=== PATIENT | male | born 1965 | race African-American/Black ===

== ENCOUNTER 2017-05-20 07:40 | Emergency (ER) | payer OTHER, MEDICAID ==
[~2017-05-20] VITALS: Ht 175.3 cm; Wt 100.0 kg
[~2017-05-20 07:40] MED LIST: ATEN1POW2; IBUP100T53; OMEP20TA80; TRAZ50TA47 PO; [UNRECOGNIZED DRUG - CODE]
[2017-05-20] MEDS ORDERED: DIPHENHYDRAMINE 50MG CAPSULE PO ONE (09:30)
[2017-05-20] MEDS ORDERED: HYDROCODONE/ACETAMINOPHEN 5/325MG TABLET PO ONE (09:30)
[2017-05-20] MEDS ORDERED: PREDNISONE 20MG TABLET PO ONE (09:30)
[2017-05-20 11:00] VITALS: BP 158/87
== END 2017-05-20 11:03 | disposition home or self-care (01) ==
LOC: ER 07:40
DX: T78.40XA Allergy, unspecified, initial encounter (principal); R21 Rash and other nonspecific skin eruption; I10 Essential (primary) hypertension; F12.10 Cannabis abuse, uncomplicated; Z90.49 Acquired absence of other specified parts of digestive tract; Y92.89 Other specified places as the place of occurrence of the external cause; Z91.048 Other nonmedicinal substance allergy status
CPT/HCPCS: 99284; J7512; Q0163

== ENCOUNTER 2017-11-30 09:11 | Emergency (ER) | payer OTHER, MEDICAID ==
[~2017-11-30] VITALS: Ht 175.3 cm; Wt 100.0 kg
[~2017-11-30 09:11] MED LIST changes: +OMEP20TA2; -OMEP20TA80
[2017-11-30] MEDS ORDERED: KETOROLAC 30MG/ML VIAL IM ONE (10:00)
[2017-11-30] MEDS ORDERED: CYCLOBENZAPRINE 10MG TABLET PO ONE (10:00)
[2017-11-30 12:23] VITALS: BP 171/111
== END 2017-11-30 12:27 | disposition home or self-care (01) ==
LOC: ER 09:43
DX: R20.0 Anesthesia of skin (principal); M25.512 Pain in left shoulder; M25.511 Pain in right shoulder; I10 Essential (primary) hypertension; F12.90 Cannabis use, unspecified, uncomplicated; Z87.891 Personal history of nicotine dependence
CPT/HCPCS: 96372; 99283; J1885

== ENCOUNTER 2018-04-28 13:49 | Emergency (ER) | payer OTHER, MEDICAID ==
[~2018-04-28] VITALS: Ht 177.8 cm; Wt 100.0 kg
[2018-04-28] MEDS ORDERED: KETOROLAC 60MG/2ML VIAL IM ONE (19:00)
[2018-04-28 19:04] VITALS: BP 172/98
== END 2018-04-28 19:09 | disposition home or self-care (01) ==
LOC: ER 13:49
DX: M47.897 Other spondylosis, lumbosacral region (principal); R03.0 Elevated blood-pressure reading, without diagnosis of hypertension; I10 Essential (primary) hypertension; F12.90 Cannabis use, unspecified, uncomplicated; Z87.891 Personal history of nicotine dependence
CPT/HCPCS: 72100; 96372; 99284; J1885

== ENCOUNTER 2019-03-13 07:57 | Emergency (ER) | payer OTHER, MEDICAID ==
[~2019-03-13] VITALS: Ht 172.7 cm; Wt 88.0 kg
[2019-03-13] MEDS ORDERED: SODIUM CHLORIDE 0.9% 1,000 ML IV ONE (08:51)
[2019-03-13] MEDS ORDERED: METHYLPREDNISOLONE SOD SUCC 125 MG/2 ML VIAL IV ONE (09:00)
[2019-03-13] MEDS ORDERED: DIPHENHYDRAMINE 50MG/ML VIAL IV ONE (09:00)
[2019-03-13] MEDS ORDERED: FAMOTIDINE 20MG/2ML VIAL IV ONE (09:00)
[2019-03-13 09:09] LABS: BASOPHILS % 0.8 % (0.0-2.0); CHLORIDE 105 mEq/L (98-107); EOSINOPHILS % 7.9 % (0.0-5.0); HEMOGLOBIN. 14.8 g/dL (14.0-18.0); LYMPHOCYTES % 25.4 % (20.0-50.0); MEAN CORPUSCULAR HEMOGLOBIN 28.7 pg (28.0-32.0); MEAN CORPUSCULAR VOLUME 83.5 fL (80.0-94.0); MEAN PLATELET VOLUME 7.6 fl (7.4-10.4); MONOCYTES % 11.4 % (2.0-8.0); NEUTROPHILS % 54.5 % (40.0-76.0); PLATELET 236 x1000/uL (130-400); RED BLOOD CELL COUNT 5.15 mill/uL (4.7-6.1); RED CELL DISTRIBUTION WIDTH 13.1 % (11.6-14.6)
[2019-03-13 09:16] LABS: PARTIAL THROMBOPLASTIN TIME 27.3 sec (23.4-31.0); PROTHROMBIN TIME 10.7 sec (9.6-11.0)
[2019-03-13] MEDS ORDERED: PREDNISONE 20MG TABLET PO ONE (12:15)
[2019-03-13 12:52] VITALS: BP 158/82
== END 2019-03-13 12:58 | disposition left against medical advice (07) ==
LOC: ER 08:05 → CANBEDREQ 14:43
DX: T78.40XA Allergy, unspecified, initial encounter (principal); I10 Essential (primary) hypertension; F12.10 Cannabis abuse, uncomplicated; J44.9 Chronic obstructive pulmonary disease, unspecified; M19.90 Unspecified osteoarthritis, unspecified site; I20.9 Angina pectoris, unspecified; Z79.899 Other long term (current) drug therapy; X58.XXXA Exposure to other specified factors, initial encounter
CPT/HCPCS: 36415; 71045; 80053; 83880; 84484; 85025; 85610; 85730; 93005; 96374; 96375; 99284; J1200; J2930; J3490; J7030; J7512

== ENCOUNTER 2020-11-22 12:53 | Emergency (ER) | payer MEDICARE, MEDICAID ==
[~2020-11-22] VITALS: Ht 177.8 cm; Wt 115.0 kg
[2020-11-22] MEDS ORDERED: DIPHENHYDRAMINE 50MG/ML VIAL IV ONE (13:45)
[2020-11-22] MEDS ORDERED: METHYLPREDNISOLONE SOD SUCC 125 MG/2 ML VIAL IV ONE (13:45)
[2020-11-22] MEDS ORDERED: FAMOTIDINE 20MG/2ML VIAL IV ONE (13:45)
[2020-11-22 13:56] VITALS: BP 102/62
== END 2020-11-22 15:20 | disposition home or self-care (01) ==
LOC: ER 13:01
DX: T78.1XXA Other adverse food reactions, not elsewhere classified, initial encounter (principal); I10 Essential (primary) hypertension; J44.9 Chronic obstructive pulmonary disease, unspecified; J45.909 Unspecified asthma, uncomplicated; M19.90 Unspecified osteoarthritis, unspecified site; F12.10 Cannabis abuse, uncomplicated; Z90.49 Acquired absence of other specified parts of digestive tract; Z91.010 Allergy to peanuts; X58.XXXA Exposure to other specified factors, initial encounter
CPT/HCPCS: 96374; 96375; 99283; J1200; J2930; J3490

== ENCOUNTER 2020-12-17 09:02 | Emergency (ER) | payer MEDICARE, MEDICAID ==
[~2020-12-17] VITALS: Ht 177.8 cm; Wt 118.0 kg
[2020-12-17] MEDS ORDERED: IPRATROPIUM BROMIDE (0.02%) 0.5MG/2.5ML NEB HHN STA (09:29)
[2020-12-17] MEDS ORDERED: ACETAMINOPHEN 325MG TABLET PO STA (09:29)
[2020-12-17] MEDS ORDERED: ALBUTEROL (0.083%) 2.5MG/3ML NEB HHN STA (09:29)
[2020-12-17] MEDS ORDERED: PREDNISONE 20MG TABLET PO STA (09:29)
[2020-12-17] MEDS ORDERED: CEFTRIAXONE 1 G PREMIX 50 ML IV ONE (09:30)
[2020-12-17 09:50] LABS: BASOPHILS % 0.6 % (0.0-2.0); EOSINOPHILS % 1.9 % (0.0-5.0); HEMATOCRIT. 38.6 % (42.0-52.0); HEMOGLOBIN. 13.1 g/dL (14.0-18.0); LYMPHOCYTES % 16.7 % (20.0-50.0); MEAN CORPUSCULAR HEMOGLOBIN 28.1 pg (28.0-32.0); MEAN CORPUSCULAR VOLUME 82.8 fL (80.0-94.0); MEAN PLATELET VOLUME 7.8 fl (7.4-10.4); MONOCYTES % 13.9 % (2.0-8.0); NEUTROPHILS % 66.9 % (40.0-76.0); PLATELET 243 x1000/uL (130-400); RED BLOOD CELL COUNT 4.66 mill/uL (4.7-6.1); RED CELL DISTRIBUTION WIDTH 14.3 % (11.6-14.6)
[2020-12-17 09:57] LABS: CHLORIDE 108 mEq/L (98-107)
[2020-12-17] MEDS ORDERED: CEFTRIAXONE SODIUM 1 G/VIAL IV ONE (11:00)
[2020-12-17] MEDS ORDERED: AZITHROMYCIN 500 MG in DEXT 5% WATER 250 ML IV SCH (12:30)
[2020-12-17] MEDS ORDERED: IOHEXOL-350 100 ML BOTTLE ONE (13:16)
[2020-12-17] MEDS ORDERED: ENOXAPARIN 120MG/0.8ML SYR SUBCUT ONE (13:30)
[2020-12-17 13:39] LABS: PARTIAL THROMBOPLASTIN TIME 33.1 sec (23.4-31.0); PROTHROMBIN TIME 11.2 sec (9.6-11.0)
[2020-12-17 14:22] VITALS: BP 137/71
== END 2020-12-17 15:00 | disposition short-term general hospital (02) ==
LOC: ER 09:14
DX: I26.99 Other pulmonary embolism without acute cor pulmonale (principal); J18.9 Pneumonia, unspecified organism; J44.1 Chronic obstructive pulmonary disease with (acute) exacerbation; Z20.822 Contact with and (suspected) exposure to COVID-19; R79.1 Abnormal coagulation profile; I10 Essential (primary) hypertension; R73.9 Hyperglycemia, unspecified; J98.11 Atelectasis; D64.9 Anemia, unspecified; F17.210 Nicotine dependence, cigarettes, uncomplicated; F12.90 Cannabis use, unspecified, uncomplicated; Z91.010 Allergy to peanuts
CPT/HCPCS: 36415; 71045; 71275; 80048; 80076; 83605; 84145; 84484; 85025; 85379; 85610; 85730; 87040; 93005; 94644; 96365; 96367; 96372; 99285; C9803; J0456; J0696; J1650; J7060; J7512; Q9967; U0003

== ENCOUNTER 2021-07-20 10:53 | Inpatient (IN) | payer MEDICARE, MEDICAID ==
[~2021-07-20] VITALS: Ht 177.8 cm; Wt 65.8 kg
[2021-07-20] VITALS (7 sets, daily range): BP systolic 107–166; BP diastolic 51–100
[2021-07-20] MEDS ORDERED: ONDANSETRON HCL 4MG/2ML INJ IV STA (11:39)
[2021-07-20] MEDS ORDERED: NITROGLYCERIN 0.4MG TABLET SL SL PRN (11:45)
[2021-07-20] MEDS ORDERED: ASPIRIN 81MG TABLET PO ONE (11:45)
[2021-07-20] MEDS ORDERED: MORPHINE SULFATE 2 MG/ML CPJ (NOT FOR IM USE) IV NR (11:55)
[2021-07-20 11:58] LABS: BASOPHILS % 0.6 % (0.0-2.0); EOSINOPHILS % 5.2 % (0.0-5.0); HEMATOCRIT. 40.1 % (42.0-52.0); HEMOGLOBIN. 13.9 g/dL (14.0-18.0); LYMPHOCYTES % 16.6 % (20.0-50.0); MEAN CORPUSCULAR HEMOGLOBIN 26.8 pg (28.0-32.0); MEAN CORPUSCULAR VOLUME 77.7 fL (80.0-94.0); MEAN PLATELET VOLUME 7.8 fl (7.4-10.4); NEUTROPHILS % 70.6 % (40.0-76.0); PLATELET 288 x1000/uL (130-400); RED BLOOD CELL COUNT 5.16 mill/uL (4.7-6.1); RED CELL DISTRIBUTION WIDTH 15.4 % (11.6-14.6)
[2021-07-20] MEDS: MORPHINE SULFATE 4 MG/ML CPJ (NOT FOR IM USE) IV STA ×2 (12:00→12:04)
[2021-07-20 12:07] LABS: CHLORIDE 105 mEq/L (98-107)
[2021-07-20 12:11] LABS: INR 1.1; PARTIAL THROMBOPLASTIN TIME 33.3 sec (23.4-31.0); PROTHROMBIN TIME 12.1 sec (9.6-11.0)
[2021-07-20] MEDS ORDERED: HEPARIN 5000 UNITS/ML VIAL IV ONE (12:30)
[2021-07-20] MEDS ORDERED: LIDOCAINE HCL 1% 30ML VIAL (10MG/ML) ONE (13:21)
[2021-07-20] MEDS ORDERED: IODIXANOL 320MG/ML 200ML BOTTLE ONE (13:22)
[2021-07-20] MEDS ORDERED: HEPARIN 1000 UNITS/ML 10ML ONE (13:23)
[2021-07-20] MEDS ORDERED: IOHEXOL-350 100 ML BOTTLE ONE (13:39)
[2021-07-20] MEDS ORDERED: IPRATROPIUM/ALBUTEROL 0.5-3(2.5)MG/3ML NEB NEB PRN (13:45)
[2021-07-20] MEDS ORDERED: HYDRALAZINE 20MG/ML VIAL IV PRN (13:45)
[2021-07-20] MEDS ORDERED: ONDANSETRON HCL 4MG/2ML INJ IV PRN (13:45)
[2021-07-20] MEDS ORDERED: ACETAMINOPHEN 650MG SUPP PR PRN (13:45)
[2021-07-20] MEDS ORDERED: DIPHENHYDRAMINE 50MG/ML VIAL IV PRN (13:45)
[2021-07-20] MEDS ORDERED: MIDAZOLAM HCL 2 MG/2 ML VIAL ONE (13:49)
[2021-07-20] MEDS ORDERED: FENTANYL CITRATE/PF 50MCG/ML 2ML VIAL ONE (13:50)
[2021-07-20] MEDS ORDERED: IOHEXOL-300 100 ML BOTTLE ONE ×2 (14:05→14:44)
[2021-07-20] MEDS ORDERED: EPTIFIBATIDE 2 MG/ML 10ML VIAL IV ONE (14:06)
[2021-07-20] MEDS ORDERED: TICAGRELOR 90 MG TABLET PO ONE (15:07)
[2021-07-20] MEDS ORDERED: ATROPINE SULFATE 1MG/10ML SYR IV PRN (16:45)
[2021-07-20] MEDS ORDERED: EPTIFIBATIDE 100 ML IV ONE (16:45)
[2021-07-20] MEDS ORDERED: ACETAMINOPHEN 325MG TABLET PO PRN (16:45)
[2021-07-20] MEDS ORDERED: IPRATROPIUM/ALBUTEROL 0.5-3(2.5)MG/3ML NEB HHN PRN (16:45)
[2021-07-20] MEDS: TICAGRELOR 90 MG TABLET PO SCH (17:00)
[2021-07-20] MEDS: FAMOTIDINE 20MG/2ML VIAL IV SCH (17:15)
[2021-07-20] MEDS: DEXT 5%/0.45% NACL 1000ML 1,000 ML IV SCH (17:15)
[2021-07-20] MEDS: LOSARTAN POTASSIUM 25 MG TABLET PO SCH (17:15)
[2021-07-20 19:49] LABS: CREATINE KINASE MB FRACTION 147.8 ng/mL (0.5-3.6)
[2021-07-20] MEDS: CARVEDILOL 6.25 MG TABLET PO SCH (21:17)
[2021-07-20] MEDS: ATORVASTATIN CALCIUM 40MG TABLET PO SCH (21:17)
[2021-07-21] VITALS (12 sets, daily range): BP systolic 102–166; BP diastolic 56–113
[2021-07-21] MEDS: LORAZEPAM 2MG/ML CPJ IV PRN (00:48)
[2021-07-21 01:46] LABS: CLARITY URINE CLEAR (CLEAR); COLOR URINE YELLOW (YELLOW); KETONES URINE NEGATIVE (NEGATIVE); LEUKOCYTE ESTERASE URINE NEGATIVE (NEGATIVE); NITRITE URINE NEGATIVE (NEGATIVE); OCCULT BLOOD URINE NEGATIVE (NEGATIVE); PROTEIN URINE NEGATIVE (NEGATIVE); SPECIFIC GRAVITY URINE 1.034 (1.005-1.030)
[2021-07-21 02:09] LABS: *AMPHETAMINES SCREEN URINE NEGATIVE (NEGATIVE); *BARBITURATES SCREEN URINE NEGATIVE (NEGATIVE); *BENZODIAZEPINES SCREEN URINE PRESUMTIVE POSITIVE (NEGATIVE); *COCAINE SCREEN URINE NEGATIVE (NEGATIVE); METHADONE URINE SCREEN NEGATIVE (NEGATIVE); OPIATES URINE SCREEN PRESUMTIVE POSITIVE (NEGATIVE)
[2021-07-21 02:10] LABS: CANNABINOID URINE SCREEN PRESUMTIVE POSITIVE (NEGATIVE); PHENCYCLIDINE URINE SCREEN NEGATIVE (NEGATIVE)
[2021-07-21] MEDS: DEXT 5%/0.45% NACL 1000ML 1,000 ML IV SCH (04:47)
[2021-07-21] MEDS: FAMOTIDINE 20MG/2ML VIAL IV SCH (08:27)
[2021-07-21] MEDS: LOSARTAN POTASSIUM 25 MG TABLET PO SCH (08:27)
[2021-07-21] MEDS: CARVEDILOL 6.25 MG TABLET PO SCH ×2 (08:27→21:13)
[2021-07-21] MEDS: TICAGRELOR 90 MG TABLET PO SCH ×2 (08:28→17:53)
[2021-07-21] MEDS: ASPIRIN 81MG TABLET PO SCH (08:28)
[2021-07-21 08:36] LABS: BASOPHILS % 0.3 % (0.0-2.0); EOSINOPHILS % 4.2 % (0.0-5.0); HEMATOCRIT. 38.1 % (42.0-52.0); HEMOGLOBIN. 12.7 g/dL (14.0-18.0); MEAN CORPUSCULAR HEMOGLOBIN 26.3 pg (28.0-32.0); MEAN CORPUSCULAR VOLUME 78.9 fL (80.0-94.0); MEAN PLATELET VOLUME 8.2 fl (7.4-10.4); MONOCYTES % 9.2 % (2.0-8.0); NEUTROPHILS % 65.3 % (40.0-76.0); PLATELET 253 x1000/uL (130-400); RED BLOOD CELL COUNT 4.83 mill/uL (4.7-6.1); RED CELL DISTRIBUTION WIDTH 15.3 % (11.6-14.6)
[2021-07-21] MEDS ORDERED: ASPIRIN 81MG EC TABLET PO SCH (09:00)
[2021-07-21 09:31] LABS: CHLORIDE 105 mEq/L (98-107)
[2021-07-21 09:40] LABS: LDL CHOLESTEROL 57 mg/dL (5-100)
[2021-07-21 09:41] LABS: HDL CHOLESTEROL 27 mg/dL (40-59); T4 FREE 1.01 ng/dL (0.76-1.46)
[2021-07-21] MEDS ORDERED: POTASSIUM CHLORIDE 20MEQ TABLET SR PO NR (10:45)
[2021-07-21] MEDS ORDERED: CEFTRIAXONE 1 G PREMIX 50 ML IV SCH (14:15)
[2021-07-21] MEDS: CEFTRIAXONE 1,000 MG in DEXTROSE 5% WATER 50 ML IV SCH (17:53)
[2021-07-21] MEDS: ISOSORBIDE MONONITRATE 30MG TABLET SR 24HR PO SCH (17:58)
[2021-07-21] MEDS: AMIODARONE HCL 200 MG TABLET PO SCH (21:12)
[2021-07-21] MEDS: ATORVASTATIN CALCIUM 40MG TABLET PO SCH (21:12)
[2021-07-22] VITALS (12 sets, daily range): BP systolic 113–159; BP diastolic 55–100
[2021-07-22 07:29] LABS: BASOPHILS % 0.4 % (0.0-2.0); EOSINOPHILS % 3.7 % (0.0-5.0); HEMATOCRIT. 37.6 % (42.0-52.0); HEMOGLOBIN. 12.7 g/dL (14.0-18.0); LYMPHOCYTES % 22.5 % (20.0-50.0); MEAN CORPUSCULAR HEMOGLOBIN 26.6 pg (28.0-32.0); MEAN CORPUSCULAR VOLUME 78.4 fL (80.0-94.0); MEAN PLATELET VOLUME 8.2 fl (7.4-10.4); MONOCYTES % 11.1 % (2.0-8.0); NEUTROPHILS % 62.3 % (40.0-76.0); PLATELET 264 x1000/uL (130-400); RED BLOOD CELL COUNT 4.79 mill/uL (4.7-6.1); RED CELL DISTRIBUTION WIDTH 15.3 % (11.6-14.6)
[2021-07-22] MEDS: TICAGRELOR 90 MG TABLET PO SCH ×2 (08:49→17:15)
[2021-07-22] MEDS: ASPIRIN 81MG TABLET PO SCH (08:49)
[2021-07-22] MEDS: FAMOTIDINE 20MG TABLET PO SCH (08:49)
[2021-07-22] MEDS: CARVEDILOL 6.25 MG TABLET PO SCH ×2 (08:50→21:20)
[2021-07-22] MEDS: AMIODARONE HCL 200 MG TABLET PO SCH ×2 (08:50→21:19)
[2021-07-22] MEDS: ISOSORBIDE MONONITRATE 30MG TABLET SR 24HR PO SCH (08:50)
[2021-07-22] MEDS: MORPHINE SULFATE 2 MG/ML CPJ (NOT FOR IM USE) IV PRN ×2 (09:46→14:13)
[2021-07-22 13:07] LABS: CHLORIDE 104 mEq/L (98-107)
[2021-07-22] MEDS: CEFTRIAXONE 1,000 MG in DEXTROSE 5% WATER 50 ML IV SCH (17:13)
[2021-07-22] MEDS: ATORVASTATIN CALCIUM 40MG TABLET PO SCH (21:19)
[2021-07-22] MEDS: LORAZEPAM 2MG/ML CPJ IV PRN ×2 (21:34)
[2021-07-23] VITALS (14 sets, daily range): BP systolic 114–165; BP diastolic 54–93
[2021-07-23 06:59] LABS: BASOPHILS % 0.3 % (0.0-2.0); EOSINOPHILS % 4.4 % (0.0-5.0); HEMOGLOBIN. 13.1 g/dL (14.0-18.0); LYMPHOCYTES % 22.2 % (20.0-50.0); MEAN CORPUSCULAR HEMOGLOBIN 26.6 pg (28.0-32.0); MEAN CORPUSCULAR VOLUME 77.3 fL (80.0-94.0); MONOCYTES % 13.3 % (2.0-8.0); NEUTROPHILS % 59.8 % (40.0-76.0); PLATELET 257 x1000/uL (130-400); RED BLOOD CELL COUNT 4.91 mill/uL (4.7-6.1); RED CELL DISTRIBUTION WIDTH 15.7 % (11.6-14.6)
[2021-07-23 07:21] LABS: CHLORIDE 105 mEq/L (98-107)
[2021-07-23] MEDS: ISOSORBIDE MONONITRATE 30MG TABLET SR 24HR PO SCH (08:05)
[2021-07-23] MEDS: AMIODARONE HCL 200 MG TABLET PO SCH ×2 (08:05→21:02)
[2021-07-23] MEDS: TICAGRELOR 90 MG TABLET PO SCH ×2 (08:05→16:44)
[2021-07-23] MEDS: FAMOTIDINE 20MG TABLET PO SCH (08:05)
[2021-07-23] MEDS: CARVEDILOL 6.25 MG TABLET PO SCH ×2 (08:06→21:03)
[2021-07-23] MEDS: ASPIRIN 81MG TABLET PO SCH (08:06)
[2021-07-23] MEDS ORDERED: POTASSIUM CHLORIDE INJ 40 MEQ in DEXT 5% WATER 250 ML IV NR (13:00)
[2021-07-23] MEDS ORDERED: NALOXONE HCL 0.4MG/ML VIAL IV PRN (14:30)
[2021-07-23] MEDS ORDERED: POTASSIUM CHLORIDE 20MEQ TABLET SR PO NR (15:00)
[2021-07-23] MEDS: CEFTRIAXONE 1,000 MG in DEXTROSE 5% WATER 50 ML IV SCH (16:17)
[2021-07-23] MEDS: ATORVASTATIN CALCIUM 40MG TABLET PO SCH (21:02)
[2021-07-23] MEDS: LORAZEPAM 2MG/ML CPJ IV PRN (23:39)
[2021-07-24] VITALS (22 sets, daily range): BP systolic 121–156; BP diastolic 49–99
[2021-07-24] MEDS ORDERED: DEXT 5%/0.45% NACL 1000ML 1,000 ML IV ONE
[2021-07-24 06:43] LABS: HEMATOCRIT. 38.2 % (42.0-52.0); HEMOGLOBIN. 13.2 g/dL (14.0-18.0); MEAN CORPUSCULAR HEMOGLOBIN 26.9 pg (28.0-32.0); MEAN CORPUSCULAR VOLUME 77.8 fL (80.0-94.0); MEAN PLATELET VOLUME 7.8 fl (7.4-10.4); PLATELET 278 x1000/uL (130-400); RED CELL DISTRIBUTION WIDTH 15.9 % (11.6-14.6)
[2021-07-24 06:44] LABS: CHLORIDE 105 mEq/L (98-107)
[2021-07-24] MEDS: AMIODARONE HCL 200 MG TABLET PO SCH ×2 (08:57→20:14)
[2021-07-24] MEDS: ASPIRIN 81MG TABLET PO SCH (08:57)
[2021-07-24] MEDS: CARVEDILOL 6.25 MG TABLET PO SCH ×2 (08:57→20:14)
[2021-07-24] MEDS: TICAGRELOR 90 MG TABLET PO SCH ×2 (08:57→16:33)
[2021-07-24] MEDS: FAMOTIDINE 20MG TABLET PO SCH (08:57)
[2021-07-24] MEDS: ISOSORBIDE MONONITRATE 30MG TABLET SR 24HR PO SCH (08:57)
[2021-07-24] MEDS ORDERED: HEPARIN SODIUM 1,000 UNIT/1ML VIAL IV ONE (09:20)
[2021-07-24 14:11] LABS: PLATELET ESTIMATE NORMAL
[2021-07-24] MEDS ORDERED: IODIXANOL 320MG/ML 100 ML BOTTLE IV ONE ×2 (14:15→15:28)
[2021-07-24] MEDS ORDERED: HEPARIN 1000 UNITS/ML 10ML ONE (14:15)
[2021-07-24] MEDS ORDERED: MIDAZOLAM HCL 2 MG/2 ML VIAL ONE ×2 (14:15→15:30)
[2021-07-24] MEDS ORDERED: LIDOCAINE HCL 1% 20ML VIAL (Pyxis) INJ ONE (14:15)
[2021-07-24] MEDS ORDERED: FENTANYL CITRATE/PF 50MCG/ML 2ML VIAL ONE ×2 (14:15→15:31)
[2021-07-24] MEDS ORDERED: IOHEXOL-300 100 ML BOTTLE ONE (15:15)
[2021-07-24] MEDS ORDERED: HYDRALAZINE 20MG/ML VIAL ONE (15:33)
[2021-07-24] MEDS ORDERED: TICAGRELOR 90 MG TABLET PO ONE (15:54)
[2021-07-24] MEDS ORDERED: ACETAMINOPHEN 325MG TABLET PO PRN (16:00)
[2021-07-24] MEDS ORDERED: ATROPINE SULFATE 1MG/10ML SYR IV PRN (16:00)
[2021-07-24] MEDS: CEFTRIAXONE 1,000 MG in DEXTROSE 5% WATER 50 ML IV SCH (16:19)
[2021-07-24] MEDS: HYDROCODONE/ACETAMINOPHEN 5/325MG TABLET PO PRN (19:47)
[2021-07-24] MEDS: ATORVASTATIN CALCIUM 40MG TABLET PO SCH (20:14)
[2021-07-24] MEDS: LORAZEPAM 2MG/ML CPJ IV PRN (22:53)
[2021-07-25] VITALS (8 sets, daily range): BP systolic 111–151; BP diastolic 42–89
[2021-07-25] MEDS: HYDROCODONE/ACETAMINOPHEN 5/325MG TABLET PO PRN (06:13)
[2021-07-25 07:17] LABS: BASOPHILS % 0.3 % (0.0-2.0); EOSINOPHILS % 3.9 % (0.0-5.0); HEMATOCRIT. 41.2 % (42.0-52.0); HEMOGLOBIN. 14.2 g/dL (14.0-18.0); MEAN CORPUSCULAR HEMOGLOBIN 26.8 pg (28.0-32.0); MEAN CORPUSCULAR VOLUME 77.5 fL (80.0-94.0); MEAN PLATELET VOLUME 7.8 fl (7.4-10.4); MONOCYTES % 10.7 % (2.0-8.0); NEUTROPHILS % 67.1 % (40.0-76.0); PLATELET 311 x1000/uL (130-400); RED BLOOD CELL COUNT 5.31 mill/uL (4.7-6.1); RED CELL DISTRIBUTION WIDTH 15.7 % (11.6-14.6)
[2021-07-25] MEDS: ASPIRIN 81MG TABLET PO SCH (08:30)
[2021-07-25] MEDS: AMIODARONE HCL 200 MG TABLET PO SCH (08:31)
[2021-07-25] MEDS: TICAGRELOR 90 MG TABLET PO SCH ×2 (08:31→16:46)
[2021-07-25] MEDS: ISOSORBIDE MONONITRATE 30MG TABLET SR 24HR PO SCH (08:31)
[2021-07-25] MEDS: FAMOTIDINE 20MG TABLET PO SCH (08:31)
[2021-07-25] MEDS: CARVEDILOL 6.25 MG TABLET PO SCH (08:32)
[2021-07-25 08:35] LABS: CHLORIDE 105 mEq/L (98-107)
[2021-07-25] MEDS ORDERED: ATOR80TA MT (12:07)
[2021-07-25] MEDS ORDERED: COR6 MT (12:07)
[2021-07-25] MEDS ORDERED: ISOS20TA57 PO (14:03)
[2021-07-25] MEDS ORDERED: AMI2 PO (14:03)
== END 2021-07-25 19:29 | disposition home or self-care (01) | DRG 246 ==
LOC: ER 10:53 → 3WST 12:43 → SUPCPDRO 13:34
PROVIDERS: ADMIT Internal Medicine; ATTEND Internal Medicine
PROC: 027035Z Dilation of Coronary Artery, One Artery with Two Drug-eluting Intraluminal Devices, Percutaneous Approach (ICD-10-PCS; 2021-07-20)
PROC: B41F1ZZ Fluoroscopy of Right Lower Extremity Arteries using Low Osmolar Contrast (ICD-10-PCS; 2021-07-20)
PROC: 4A023N7 Measurement of Cardiac Sampling and Pressure, Left Heart, Percutaneous Approach (ICD-10-PCS; 2021-07-20)
PROC: B2111ZZ Fluoroscopy of Multiple Coronary Arteries using Low Osmolar Contrast (ICD-10-PCS; 2021-07-20)
PROC: 3E033PZ Introduction of Platelet Inhibitor into Peripheral Vein, Percutaneous Approach (ICD-10-PCS; 2021-07-20)
PROC: 4A033BC Measurement of Arterial Pressure, Coronary, Percutaneous Approach (ICD-10-PCS; 2021-07-20)
PROC: 027135Z Dilation of Coronary Artery, Two Arteries with Two Drug-eluting Intraluminal Devices, Percutaneous Approach (ICD-10-PCS; principal; 2021-07-24)
PROC: 4A023N7 Measurement of Cardiac Sampling and Pressure, Left Heart, Percutaneous Approach (ICD-10-PCS; 2021-07-24)
PROC: B2111ZZ Fluoroscopy of Multiple Coronary Arteries using Low Osmolar Contrast (ICD-10-PCS; 2021-07-24)
PROC: B41F1ZZ Fluoroscopy of Right Lower Extremity Arteries using Low Osmolar Contrast (ICD-10-PCS; 2021-07-24)
DX: I21.19 ST elevation (STEMI) myocardial infarction involving other coronary artery of inferior wall (principal); I69.351 Hemiplegia and hemiparesis following cerebral infarction affecting right dominant side; J98.11 Atelectasis; J44.1 Chronic obstructive pulmonary disease with (acute) exacerbation; J45.901 Unspecified asthma with (acute) exacerbation; D64.9 Anemia, unspecified; E66.01 Morbid (severe) obesity due to excess calories; E78.00 Pure hypercholesterolemia, unspecified; I10 Essential (primary) hypertension; E78.5 Hyperlipidemia, unspecified; M19.90 Unspecified osteoarthritis, unspecified site; Z20.822 Contact with and (suspected) exposure to COVID-19; F32.A Depression, unspecified; R59.0 Localized enlarged lymph nodes; I25.10 Atherosclerotic heart disease of native coronary artery without angina pectoris; R73.9 Hyperglycemia, unspecified; Z79.01 Long term (current) use of anticoagulants; Z82.49 Family history of ischemic heart disease and other diseases of the circulatory system; Z83.3 Family history of diabetes mellitus; Z86.711 Personal history of pulmonary embolism; I69.328 Other speech and language deficits following cerebral infarction; Z90.49 Acquired absence of other specified parts of digestive tract; Z68.20 Body mass index [BMI] 20.0-20.9, adult; Z91.010 Allergy to peanuts; Z91.048 Other nonmedicinal substance allergy status; Z79.899 Other long term (current) drug therapy; Z71.51 Drug abuse counseling and surveillance of drug abuser
CPT/HCPCS: 36415; 71045; 71275; 80048; 80053; 80061; 80305; 81003; 82550; 82553; 83036; 83880; 84439; 84443; 84484; 85025; 85347; 86850; 86900; 87426; 92928; 93005; 93306; 93454; 93571; 93970; 97116; 97162; 99291; C1725; C1760; C1769; C1874 ×2; C1887; C1893; J0360; J0696; J1327; J1644; J2060; J2250; J2270; J2405; J3010; J3480; J3490; J7060; Q9967; J8499

== ENCOUNTER 2022-01-21 16:23 | Inpatient (IN) | payer MEDICARE, MEDICAID ==
[~2022-01-21] VITALS: Ht 177.8 cm; Wt 122.5 kg
[~2022-01-21 16:23] MED LIST changes: +AMI2 PO; -ATEN1POW2; +ATOR80TA MT; +COR6 MT; -IBUP100T53; +ISOS20TA57 PO; -[UNRECOGNIZED DRUG - CODE]
[2022-01-21] MEDS ORDERED: MORPHINE SULFATE 4 MG/ML CPJ (NOT FOR IM USE) IV STA (16:35)
[2022-01-21] MEDS ORDERED: KETOROLAC 30MG/ML VIAL IV STA (16:35)
[2022-01-21 17:50] LABS: CHLORIDE 107 mEq/L (98-107)
[2022-01-21 17:55] LABS: BASOPHILS % 0.5 % (0.0-2.0); HEMATOCRIT. 43.5 % (42.0-52.0); HEMOGLOBIN. 14.5 g/dL (14.0-18.0); LYMPHOCYTES % 9.7 % (20.0-50.0); MEAN CORPUSCULAR HEMOGLOBIN 27.1 pg (28.0-32.0); MEAN CORPUSCULAR VOLUME 81.2 fL (80.0-94.0); MEAN PLATELET VOLUME 8.5 fl (7.4-10.4); NEUTROPHILS % 78.8 % (40.0-76.0); PLATELET 202 x1000/uL (130-400); RED BLOOD CELL COUNT 5.36 mill/uL (4.7-6.1); RED CELL DISTRIBUTION WIDTH 15.6 % (11.6-14.6)
[2022-01-21] MEDS ORDERED: ONDANSETRON HCL 4MG/2ML INJ IV ONE (21:15)
[2022-01-21] MEDS ORDERED: MORPHINE SULFATE 4 MG/ML CPJ (NOT FOR IM USE) IV SCH (23:00)
[2022-01-21] MEDS ORDERED: ACETAMINOPHEN 325MG TABLET PO SCH (23:00)
[2022-01-22] MEDS ORDERED: METHOCARBAMOL 750MG TABLET PO SCH
[2022-01-22] MEDS ORDERED: MORPHINE SULFATE 4 MG/ML CPJ (NOT FOR IM USE) IV SCH (03:30)
[2022-01-22 04:05] LABS: CLARITY URINE CLOUDY (CLEAR); COLOR URINE YELLOW (YELLOW); KETONES URINE NEGATIVE (NEGATIVE); LEUKOCYTE ESTERASE URINE TRACE (NEGATIVE); NITRITE URINE NEGATIVE (NEGATIVE); OCCULT BLOOD URINE 3+ (NEGATIVE); PH URINE 5.5 (4.5-8.0); PROTEIN URINE 1+ (NEGATIVE); SPECIFIC GRAVITY URINE 1.018 (1.005-1.030)
[2022-01-22] MEDS ORDERED: CLONIDINE 0.1MG TABLET PO PRN (06:45)
[2022-01-22] MEDS ORDERED: NALOXONE HCL 0.4MG/ML VIAL IV PRN (06:45)
[2022-01-22] MEDS: MORPHINE SULFATE 2 MG/ML CPJ (NOT FOR IM USE) IV PRN ×3 (07:00→20:25)
[2022-01-22] MEDS: CYCLOBENZAPRINE 10MG TABLET PO SCH ×2 (09:11→20:26)
[2022-01-22] MEDS ORDERED: CEFTRIAXONE 1 G PREMIX 50 ML IV SCH (10:30)
[2022-01-22] MEDS: CEFTRIAXONE 1,000 MG in DEXTROSE 5% WATER 50 ML IV SCH (11:00)
[2022-01-22 13:11] LABS: BASOPHILS % 0.8 % (0.0-2.0); EOSINOPHILS % 3.3 % (0.0-5.0); HEMATOCRIT. 41.4 % (42.0-52.0); LYMPHOCYTES % 21.3 % (20.0-50.0); MEAN CORPUSCULAR HEMOGLOBIN 27.5 pg (28.0-32.0); MEAN CORPUSCULAR VOLUME 81.3 fL (80.0-94.0); MONOCYTES % 14.3 % (2.0-8.0); NEUTROPHILS % 60.3 % (40.0-76.0); PLATELET 174 x1000/uL (130-400); RED BLOOD CELL COUNT 5.09 mill/uL (4.7-6.1); RED CELL DISTRIBUTION WIDTH 15.8 % (11.6-14.6)
[2022-01-22 13:19] LABS: CHLORIDE 108 mEq/L (98-107)
[2022-01-22] MEDS: HYDRALAZINE 20MG/ML VIAL IV PRN ×2 (14:30→20:24)
[2022-01-22] MEDS ORDERED: ACETAMINOPHEN 650MG SUPP PR PRN (17:45)
[2022-01-22] MEDS ORDERED: HYDROCODONE/ACETAMINOPHEN 5/325MG TABLET PO PRN (17:45)
[2022-01-22] MEDS ORDERED: ACETAMINOPHEN 325MG TABLET PO PRN (17:45)
[2022-01-22] MEDS: ASPIRIN 81MG TABLET PO SCH (18:34)
[2022-01-22 23:37] VITALS: BP 159/88
[2022-01-22] MEDS: ATORVASTATIN CALCIUM 20MG TABLET PO SCH (23:50)
[2022-01-23] VITALS (7 sets, daily range): BP systolic 115–174; BP diastolic 83–92
[2022-01-23] MEDS ORDERED: HYDROCODONE/ACETAMINOPHEN 5/325MG TABLET PO PRN (00:27)
[2022-01-23] MEDS: MORPHINE SULFATE 2 MG/ML CPJ (NOT FOR IM USE) IV PRN ×5 (00:44→23:03)
[2022-01-23] MEDS: FAMOTIDINE 20MG TABLET PO SCH ×2 (00:44→20:33)
[2022-01-23 02:30] LABS: *AMPHETAMINES SCREEN URINE NEGATIVE (NEGATIVE); *BARBITURATES SCREEN URINE NEGATIVE (NEGATIVE); *BENZODIAZEPINES SCREEN URINE NEGATIVE (NEGATIVE); *COCAINE SCREEN URINE NEGATIVE (NEGATIVE); METHADONE URINE SCREEN NEGATIVE (NEGATIVE)
[2022-01-23 02:31] LABS: CANNABINOID URINE SCREEN PRESUMTIVE POSITIVE (NEGATIVE); OPIATES URINE SCREEN PRESUMTIVE POSITIVE (NEGATIVE); PHENCYCLIDINE URINE SCREEN NEGATIVE (NEGATIVE)
[2022-01-23] MEDS ORDERED: PANTOPRAZOLE 40MG DR TABLET PO SCH (07:10)
[2022-01-23 07:31] LABS: BASOPHILS % 0.4 % (0.0-2.0); EOSINOPHILS % 2.6 % (0.0-5.0); HEMATOCRIT. 41.6 % (42.0-52.0); HEMOGLOBIN. 14.3 g/dL (14.0-18.0); LYMPHOCYTES % 14.8 % (20.0-50.0); MEAN CORPUSCULAR HEMOGLOBIN 27.5 pg (28.0-32.0); MEAN CORPUSCULAR VOLUME 79.9 fL (80.0-94.0); MEAN PLATELET VOLUME 8.6 fl (7.4-10.4); MONOCYTES % 12.5 % (2.0-8.0); NEUTROPHILS % 69.7 % (40.0-76.0); PLATELET 188 x1000/uL (130-400); RED BLOOD CELL COUNT 5.21 mill/uL (4.7-6.1); RED CELL DISTRIBUTION WIDTH 15.6 % (11.6-14.6)
[2022-01-23 07:41] LABS: CHLORIDE 107 mEq/L (98-107)
[2022-01-23 07:52] LABS: LDL CHOLESTEROL 67 mg/dL (5-100)
[2022-01-23 07:53] LABS: HDL CHOLESTEROL 31 mg/dL (40-59)
[2022-01-23] MEDS ORDERED: MORPHINE SULFATE 2 MG/ML CPJ (NOT FOR IM USE) IV ONE ×2 (09:58→14:13)
[2022-01-23] MEDS: CARVEDILOL 6.25 MG TABLET PO SCH ×2 (10:02→20:34)
[2022-01-23] MEDS: ASPIRIN 81MG TABLET PO SCH (10:02)
[2022-01-23] MEDS: ENOXAPARIN 30MG/0.3ML SYR SUBCUT SCH ×2 (10:04→20:33)
[2022-01-23] MEDS ORDERED: POTASSIUM CHLORIDE 20MEQ TABLET SR PO SCH (11:45)
[2022-01-23] MEDS: CYCLOBENZAPRINE 10MG TABLET PO SCH ×2 (12:40→18:37)
[2022-01-23] MEDS: CEFTRIAXONE 1,000 MG in DEXTROSE 5% WATER 50 ML IV SCH (12:40)
[2022-01-23] MEDS: ISOSORBIDE MONONITRATE 20MG TABLET PO SCH ×3 (12:41→18:38)
[2022-01-23] MEDS: ATORVASTATIN CALCIUM 20MG TABLET PO SCH (20:33)
[2022-01-24] VITALS: BP 145/83
[2022-01-24] MEDS: MORPHINE SULFATE 2 MG/ML CPJ (NOT FOR IM USE) IV PRN ×3 (03:07→13:54)
[2022-01-24 04:00] VITALS: BP 151/85
[2022-01-24 06:30] LABS: HEMATOCRIT. 40.3 % (42.0-52.0); HEMOGLOBIN. 13.7 g/dL (14.0-18.0); MEAN CORPUSCULAR HEMOGLOBIN 27.1 pg (28.0-32.0); MEAN PLATELET VOLUME 8.5 fl (7.4-10.4); PLATELET 188 x1000/uL (130-400); RED BLOOD CELL COUNT 5.04 mill/uL (4.7-6.1); RED CELL DISTRIBUTION WIDTH 15.6 % (11.6-14.6)
[2022-01-24 07:08] LABS: CHLORIDE 106 mEq/L (98-107)
[2022-01-24 08:00] VITALS: BP 165/87
[2022-01-24] MEDS: ISOSORBIDE MONONITRATE 20MG TABLET PO SCH ×3 (08:56→17:03)
[2022-01-24] MEDS: ASPIRIN 81MG TABLET PO SCH (08:56)
[2022-01-24] MEDS: ENOXAPARIN 30MG/0.3ML SYR SUBCUT SCH (08:56)
[2022-01-24] MEDS: CYCLOBENZAPRINE 10MG TABLET PO SCH ×2 (11:09→17:03)
[2022-01-24] MEDS: CARVEDILOL 6.25 MG TABLET PO SCH (11:11)
[2022-01-24] MEDS ORDERED: POTASSIUM CHLORIDE 20MEQ TABLET SR PO NR (11:15)
[2022-01-24] MEDS: CEFTRIAXONE 1,000 MG in DEXTROSE 5% WATER 50 ML IV SCH (11:19)
[2022-01-24 12:00] VITALS: BP 166/91
[2022-01-24 14:15] LABS: PLATELET ESTIMATE NORMAL
[2022-01-24] MEDS ORDERED: HYDR-4009 MT (15:12)
[2022-01-24] MEDS ORDERED: HYDROMORPHONE HCL/PF 2MG/ML CPJ IV PRN (15:15)
[2022-01-24 16:00] VITALS: BP 149/89
[2022-01-24] MEDS: HYDRALAZINE 20MG/ML VIAL IV PRN (17:07)
[2022-01-24 17:18] VITALS: BP 135/80
== END 2022-01-24 19:08 | disposition home health service (06) | DRG 542 ==
LOC: ER 16:23 → MICUSO 01-22 03:51 → 7EST 01-22 21:57
PROVIDERS: ADMIT Internal Medicine; ATTEND Internal Medicine
DX: M48.56XA Collapsed vertebra, not elsewhere classified, lumbar region, initial encounter for fracture (principal); I63.9 Cerebral infarction, unspecified; I69.351 Hemiplegia and hemiparesis following cerebral infarction affecting right dominant side; I10 Essential (primary) hypertension; E78.00 Pure hypercholesterolemia, unspecified; E78.5 Hyperlipidemia, unspecified; E86.0 Dehydration; I25.10 Atherosclerotic heart disease of native coronary artery without angina pectoris; J44.9 Chronic obstructive pulmonary disease, unspecified; G89.11 Acute pain due to trauma; M47.9 Spondylosis, unspecified; R74.01 Elevation of levels of liver transaminase levels; R00.1 Bradycardia, unspecified; M48.07 Spinal stenosis, lumbosacral region; M48.02 Spinal stenosis, cervical region; G89.29 Other chronic pain; R73.9 Hyperglycemia, unspecified; Z20.822 Contact with and (suspected) exposure to COVID-19; Z53.20 Procedure and treatment not carried out because of patient's decision for unspecified reasons; Z91.010 Allergy to peanuts; Z88.8 Allergy status to other drugs, medicaments and biological substances; Z79.899 Other long term (current) drug therapy; Z79.891 Long term (current) use of opiate analgesic; Z90.49 Acquired absence of other specified parts of digestive tract; G90.9 Disorder of the autonomic nervous system, unspecified; W19.XXXA Unspecified fall, initial encounter
CPT/HCPCS: 36415; 71045; 72131; 72141; 72148; 74176; 80048; 80053; 80061; 80305; 81003; 83036; 83605; 84153; 84443; 85025; 87426; 93306; 93880; 93970; 97162; 97166; 99285; J0360; J0696; J1170; J1650; J1885; J2270; J2405; J7060; G0103

== ENCOUNTER 2022-03-06 10:32 | Emergency (ER) | payer MEDICARE, MEDICAID ==
[~2022-03-06] VITALS: Ht 175.3 cm; Wt 110.0 kg
[~2022-03-06 10:32] MED LIST changes: +HYDR-4009 MT
[2022-03-06 11:26] LABS: BASOPHILS % 0.7 % (0.0-2.0); EOSINOPHILS % 2.6 % (0.0-5.0); HEMOGLOBIN. 14.1 g/dL (14.0-18.0); LYMPHOCYTES % 22.3 % (20.0-50.0); MEAN CORPUSCULAR HEMOGLOBIN 27.1 pg (28.0-32.0); MEAN CORPUSCULAR VOLUME 81.1 fL (80.0-94.0); MEAN PLATELET VOLUME 8.1 fl (7.4-10.4); MONOCYTES % 10.6 % (2.0-8.0); NEUTROPHILS % 63.8 % (40.0-76.0); PLATELET 212 x1000/uL (130-400); RED BLOOD CELL COUNT 5.18 mill/uL (4.7-6.1); RED CELL DISTRIBUTION WIDTH 17.3 % (11.6-14.6)
[2022-03-06 11:33] LABS: CHLORIDE 108 mEq/L (98-107)
[2022-03-06] MEDS ORDERED: OXYCODONE HCL/ACETAMINOPHEN 5/325MG TABLET PO ONE (12:00)
[2022-03-06 15:38] LABS: CLARITY URINE BLOODY (CLEAR); COLOR URINE BLOODY (YELLOW)
[2022-03-06] MEDS ORDERED: MORPHINE SULFATE 2 MG/ML CPJ (NOT FOR IM USE) IV ONE (19:15)
[2022-03-06 23:21] VITALS: BP 145/81
== END 2022-03-06 23:57 | disposition short-term general hospital (02) ==
LOC: ER 10:32
DX: R31.9 Hematuria, unspecified (principal); R30.0 Dysuria; I69.351 Hemiplegia and hemiparesis following cerebral infarction affecting right dominant side; M19.90 Unspecified osteoarthritis, unspecified site; J44.9 Chronic obstructive pulmonary disease, unspecified; K21.9 Gastro-esophageal reflux disease without esophagitis; E78.00 Pure hypercholesterolemia, unspecified; I10 Essential (primary) hypertension; I25.2 Old myocardial infarction; Z90.49 Acquired absence of other specified parts of digestive tract; Z98.61 Coronary angioplasty status; Z91.010 Allergy to peanuts
CPT/HCPCS: 36415; 70450; 71045; 76700; 80053; 81003; 85025; 87086; 96374; 99285; J2270

== ENCOUNTER 2022-03-17 19:35 | Emergency (ER) | payer MEDICARE, MEDICAID ==
[~2022-03-17] VITALS: Ht 172.7 cm; Wt 96.0 kg
[~2022-03-17 19:35] MED LIST changes: -OMEP20TA2; +OMEP20TA23
[2022-03-17 21:07] LABS: HEMATOCRIT. 38.2 % (42.0-52.0); HEMOGLOBIN. 12.8 g/dL (14.0-18.0); MEAN CORPUSCULAR HEMOGLOBIN 26.6 pg (28.0-32.0); MEAN CORPUSCULAR VOLUME 79.4 fL (80.0-94.0); MEAN PLATELET VOLUME 8.3 fl (7.4-10.4); PLATELET 287 x1000/uL (130-400); RED BLOOD CELL COUNT 4.81 mill/uL (4.7-6.1); RED CELL DISTRIBUTION WIDTH 16.9 % (11.6-14.6)
[2022-03-17 21:15] LABS: CHLORIDE 106 mEq/L (98-107)
[2022-03-17 21:50] LABS: PLATELET ESTIMATE NORMAL
[2022-03-17] MEDS ORDERED: KETOROLAC 15MG/ML VIAL IV ONE (22:15)
[2022-03-17 22:29] LABS: CLARITY URINE TURBID (CLEAR); COLOR URINE RED (YELLOW); KETONES URINE NEGATIVE (NEGATIVE); LEUKOCYTE ESTERASE URINE 3+ (NEGATIVE); NITRITE URINE POSITIVE (NEGATIVE); OCCULT BLOOD URINE 2+ (NEGATIVE); PH URINE 5.5 (4.5-8.0); PROTEIN URINE 2+ (NEGATIVE)
[2022-03-18] MEDS ORDERED: CEPH500T MT (00:46)
[2022-03-18 08:45] VITALS: BP 135/63
== END 2022-03-18 09:33 | disposition home or self-care (01) ==
LOC: ER 19:35
DX: N39.0 Urinary tract infection, site not specified (principal); R31.9 Hematuria, unspecified; J18.1 Lobar pneumonia, unspecified organism; J44.9 Chronic obstructive pulmonary disease, unspecified; I10 Essential (primary) hypertension; I25.2 Old myocardial infarction; Z86.73 Personal history of transient ischemic attack (TIA), and cerebral infarction without residual deficits; Z79.899 Other long term (current) drug therapy
CPT/HCPCS: 36415; 74176; 80053; 81003; 85025; 96374; 99284; J1885; 99285

== ENCOUNTER 2022-03-27 23:19 | Emergency (ER) | payer MEDICARE, MEDICAID ==
[~2022-03-27] VITALS: Ht 170.2 cm; Wt 100.0 kg
[~2022-03-27 23:19] MED LIST changes: +CEPH500T MT
[2022-03-27 23:59] LABS: BASOPHILS % 0.5 % (0.0-2.0); EOSINOPHILS % 2.6 % (0.0-5.0); HEMOGLOBIN. 13.1 g/dL (14.0-18.0); LYMPHOCYTES % 26.7 % (20.0-50.0); MEAN CORPUSCULAR VOLUME 82.1 fL (80.0-94.0); MEAN PLATELET VOLUME 7.7 fl (7.4-10.4); MONOCYTES % 12.7 % (2.0-8.0); NEUTROPHILS % 57.5 % (40.0-76.0); PLATELET 374 x1000/uL (130-400); RED BLOOD CELL COUNT 4.87 mill/uL (4.7-6.1); RED CELL DISTRIBUTION WIDTH 17.2 % (11.6-14.6)
[2022-03-28 00:04] LABS: CHLORIDE 104 mEq/L (98-107)
[2022-03-28 05:09] LABS: CLARITY URINE CLOUDY (CLEAR); COLOR URINE RED (YELLOW); KETONES URINE 1+ (NEGATIVE); LEUKOCYTE ESTERASE URINE 2+ (NEGATIVE); NITRITE URINE POSITIVE (NEGATIVE); OCCULT BLOOD URINE 3+ (NEGATIVE); PH URINE 5.5 (4.5-8.0); PROTEIN URINE 2+ (NEGATIVE); SPECIFIC GRAVITY URINE 1.017 (1.005-1.030)
[2022-03-28] MEDS ORDERED: CYCLOBENZAPRINE 10MG TABLET PO ONE (06:45)
[2022-03-28] MEDS ORDERED: KETOROLAC 15MG/ML VIAL IV ONE (06:45)
[2022-03-28] MEDS ORDERED: LIDOCAINE 5% PATCH TOP SCH (06:45)
[2022-03-28 13:41] VITALS: BP 117/84
== END 2022-03-28 13:56 | disposition left against medical advice (07) ==
LOC: ER 23:19
DX: M54.50 Low back pain, unspecified (principal); J44.9 Chronic obstructive pulmonary disease, unspecified; I10 Essential (primary) hypertension; I25.2 Old myocardial infarction; Z86.73 Personal history of transient ischemic attack (TIA), and cerebral infarction without residual deficits; Z79.899 Other long term (current) drug therapy
CPT/HCPCS: 36415; 72128; 72131; 74176; 80053; 81003; 82962; 85025; 87086; 96374; 99284; J1885

== ENCOUNTER 2022-04-07 08:35 | Inpatient (IN) | payer MEDICARE, MEDICAID ==
[~2022-04-07] VITALS: Ht 165.1 cm; Wt 96.6 kg
[2022-04-07] MEDS ORDERED: HYDROCODONE/ACETAMINOPHEN 5/325MG TABLET PO ONE ×2 (09:15)
[2022-04-07] MEDS ORDERED: OXYC-100 MT (10:20)
[2022-04-07 10:58] LABS: BASOPHILS % 0.8 % (0.0-2.0); EOSINOPHILS % 3.5 % (0.0-5.0); HEMATOCRIT. 40.3 % (42.0-52.0); HEMOGLOBIN. 13.3 g/dL (14.0-18.0); LYMPHOCYTES % 30.9 % (20.0-50.0); MEAN CORPUSCULAR HEMOGLOBIN 27.5 pg (28.0-32.0); MEAN PLATELET VOLUME 8.3 fl (7.4-10.4); MONOCYTES % 9.7 % (2.0-8.0); NEUTROPHILS % 55.1 % (40.0-76.0); PLATELET 219 x1000/uL (130-400); RED BLOOD CELL COUNT 4.85 mill/uL (4.7-6.1); RED CELL DISTRIBUTION WIDTH 17.7 % (11.6-14.6)
[2022-04-07 11:14] LABS: CHLORIDE 108 mEq/L (98-107)
[2022-04-07] MEDS ORDERED: POTASSIUM CHLORIDE 20MEQ TABLET SR PO NR (12:30)
[2022-04-07] MEDS ORDERED: MORPHINE SULFATE 4 MG/ML CPJ (NOT FOR IM USE) IV ONE (13:00)
[2022-04-07] MEDS ORDERED: MORPHINE SULFATE 2 MG/ML CPJ (NOT FOR IM USE) IV PRN ×2 (15:00→18:15)
[2022-04-07] MEDS ORDERED: NALOXONE HCL 0.4MG/ML VIAL IV PRN (22:30)
[2022-04-07] MEDS: MORPHINE SULFATE 2 MG/ML CPJ (NOT FOR IM USE) IV PRN (22:48)
[2022-04-08] MEDS: MORPHINE SULFATE 2 MG/ML CPJ (NOT FOR IM USE) IV PRN ×3 (04:45→22:20)
[2022-04-08 09:00] VITALS: BP 174/87
[2022-04-08 10:00] VITALS: BP 154/87
[2022-04-08 12:00] VITALS: BP 147/86
[2022-04-08] MEDS ORDERED: CLONIDINE 0.1MG TABLET PO PRN (12:30)
[2022-04-08] MEDS ORDERED: ACETAMINOPHEN 325MG TABLET PO PRN (12:30)
[2022-04-08] MEDS ORDERED: IPRATROPIUM/ALBUTEROL 0.5-3(2.5)MG/3ML NEB HHN PRN (12:30)
[2022-04-08] MEDS ORDERED: ISOSORBIDE MONONITRATE 20MG TABLET PO SCH (14:00)
[2022-04-08 16:00] VITALS: BP 169/97
[2022-04-08 16:53] LABS: INR 1.1; PROTHROMBIN TIME 11.8 sec (9.6-11.0)
[2022-04-08] MEDS ORDERED: ENOXAPARIN 30MG/0.3ML SYR SUBCUT SCH (17:00)
[2022-04-08 17:03] LABS: CREATINE KINASE 32 IU/L (39-308); CREATINE KINASE MB FRACTION < 1.0 ng/mL (0.5-3.6)
[2022-04-08] MEDS: AMIODARONE HCL 200 MG TABLET PO SCH (18:05)
[2022-04-08 20:00] VITALS: BP 139/88
[2022-04-08] MEDS ORDERED: MORPHINE SULFATE 2 MG/ML CPJ (NOT FOR IM USE) IV PRN (22:15)
[2022-04-08 23:36] LABS: CREATINE KINASE 29 IU/L (39-308); CREATINE KINASE MB FRACTION < 1.0 ng/mL (0.5-3.6)
[2022-04-09] VITALS: BP 156/87
[2022-04-09 04:00] VITALS: BP 139/80
[2022-04-09] MEDS: MORPHINE SULFATE 2 MG/ML CPJ (NOT FOR IM USE) IV PRN ×2 (05:01→10:25)
[2022-04-09 08:00] VITALS: BP 128/86
[2022-04-09] MEDS ORDERED: DIAZEPAM 5 MG TABLET PO NR (08:30)
[2022-04-09] MEDS: ISOSORBIDE MONONITRATE 30MG TABLET SR 24HR PO SCH (10:24)
[2022-04-09] MEDS: AMIODARONE HCL 200 MG TABLET PO SCH ×2 (10:24→17:00)
[2022-04-09 12:00] VITALS: BP 144/89
[2022-04-09 16:00] VITALS: BP 109/78
[2022-04-09 20:00] VITALS: BP 118/75
[2022-04-10] VITALS: BP 137/80
[2022-04-10 04:00] VITALS: BP 136/80
[2022-04-10] MEDS: MORPHINE SULFATE 2 MG/ML CPJ (NOT FOR IM USE) IV PRN ×2 (04:13→16:03)
[2022-04-10 07:16] LABS: INR 1.1; PARTIAL THROMBOPLASTIN TIME 29.2 sec (23.4-31.0); PROTHROMBIN TIME 11.8 sec (9.6-11.0)
[2022-04-10 07:20] LABS: BASOPHILS % 0.6 % (0.0-2.0); EOSINOPHILS % 4.9 % (0.0-5.0); HEMATOCRIT. 38.4 % (42.0-52.0); HEMOGLOBIN. 12.7 g/dL (14.0-18.0); LYMPHOCYTES % 29.9 % (20.0-50.0); MEAN CORPUSCULAR HEMOGLOBIN 27.2 pg (28.0-32.0); MEAN CORPUSCULAR VOLUME 82.2 fL (80.0-94.0); MEAN PLATELET VOLUME 8.7 fl (7.4-10.4); NEUTROPHILS % 50.6 % (40.0-76.0); PLATELET 196 x1000/uL (130-400); RED BLOOD CELL COUNT 4.68 mill/uL (4.7-6.1)
[2022-04-10 07:32] LABS: CHLORIDE 105 mEq/L (98-107)
[2022-04-10 08:00] VITALS: BP 133/79
[2022-04-10] MEDS: ISOSORBIDE MONONITRATE 30MG TABLET SR 24HR PO SCH (08:48)
[2022-04-10] MEDS: AMIODARONE HCL 200 MG TABLET PO SCH ×2 (08:48→16:03)
[2022-04-10] MEDS ORDERED: POTASSIUM CHLORIDE 20MEQ TABLET SR PO NR (09:00)
[2022-04-10 11:40] VITALS: BP 150/92
[2022-04-10] MEDS ORDERED: GENTAMICIN SULF 40MG/ML 2ML VIAL ONE (12:33)
[2022-04-10] MEDS ORDERED: THROMBIN (BOVINE) 5000 UNITS/VIAL TOP ONE (12:33)
[2022-04-10] MEDS ORDERED: LIDOCAINE HCL/EPINEPHRINE 1%-EPI 1:100,000 20 ML VIAL ONE (12:34)
[2022-04-10 16:00] VITALS: BP 154/89
[2022-04-10 19:55] VITALS: BP 153/83
[2022-04-11] VITALS (40 sets, daily range): BP systolic 88–145; BP diastolic 40–233
[2022-04-11] MEDS: AMIODARONE HCL 200 MG TABLET PO SCH ×2 (09:24→16:27)
[2022-04-11] MEDS: ISOSORBIDE MONONITRATE 30MG TABLET SR 24HR PO SCH (09:24)
[2022-04-11] MEDS: MORPHINE SULFATE 2 MG/ML CPJ (NOT FOR IM USE) IV PRN (09:35)
[2022-04-11] MEDS ORDERED: LIDOCAINE HCL/EPINEPHRINE 1%-EPI 1:100,000 20 ML VIAL ONE (11:11)
[2022-04-11] MEDS ORDERED: GENTAMICIN SULF 40MG/ML 2ML VIAL ONE (11:11)
[2022-04-11] MEDS ORDERED: THROMBIN (BOVINE) 5000 UNITS/VIAL TOP ONE (11:11)
[2022-04-11] MEDS ORDERED: ALBUMIN HUMAN 25GM/100ML (25%) IV ONE (13:52)
[2022-04-11] MEDS ORDERED: CALCIUM CHLORIDE 1GM/10ML SYR IV ONE (13:58)
[2022-04-11] MEDS ORDERED: DOPAMINE 400MG/250ML PREMIX 250 ML IV ONE (14:03)
[2022-04-11] MEDS ORDERED: NICARDIPINE 100 MG in SODIUM CHLORIDE 0.9% 60 ML IV PRN (15:00)
[2022-04-11] MEDS ORDERED: CEFAZOLIN SODIUM 1000MG/VIAL IV SCH (15:30)
[2022-04-11 15:50] LABS: BG BASE EXCESS -7.1 mmol/L (-2.0-2.0); BG CARBOXYHEMOGLOBIN 0.1 % (0.5-1.5); BG DEOXYHEMOGLOBIN 1.3 % (0.0-5.0); BG HCO3 ACT 18.4 mmol/L (22.0-26.0); BG METHEMOGLOBIN 0.4 % (0.0-1.5); BG OXYGEN SATURATION 98.7 % (92.0-98.5); BG OXYHEMOGLOBIN 98.2 % (94.0-97.0); BG PCO2 37.2 mmHg (35.0-45.0); BG PH 7.313 (7.350-7.450); BG PO2 162.7 mmHg (75.0-100.0); BG SAMPLE SITE ALINE; BG TOTAL HEMOGLOBIN 11.4 g/dL (12.0-18.0); BG VENT MODE MASK - SIMPLE
[2022-04-11] MEDS: DEXT 5%/LACTATED RINGERS 1,000 ML IV SCH ×2 (15:58→23:45)
[2022-04-11] MEDS: CEFAZOLIN 1000MG PREMIX 50 ML IV SCH ×2 (15:58→21:11)
[2022-04-11] MEDS: MORPHINE SULFATE 4 MG/ML CPJ (NOT FOR IM USE) IV PRN ×4 (16:20→23:45)
[2022-04-11 17:11] LABS: HEMATOCRIT. 32.3 % (42.0-52.0); HEMOGLOBIN. 10.7 g/dL (14.0-18.0); MEAN CORPUSCULAR HEMOGLOBIN 27.4 pg (28.0-32.0); MEAN CORPUSCULAR VOLUME 82.7 fL (80.0-94.0); MEAN PLATELET VOLUME 7.8 fl (7.4-10.4); PLATELET 171 x1000/uL (130-400); RED CELL DISTRIBUTION WIDTH 17.3 % (11.6-14.6)
[2022-04-11 17:19] LABS: CHLORIDE 111 mEq/L (98-107)
[2022-04-11 18:06] LABS: PLATELET ESTIMATE NORMAL
[2022-04-11] MEDS ORDERED: KCL 20MEQ/100ML PREMIX 100 ML IV SCH (21:00)
[2022-04-11] MEDS ORDERED: POTASSIUM CHLORIDE INJ 50 MEQ in DEXT 5% WATER 250 ML IV ONE ×2 (21:00→22:00)
[2022-04-12] VITALS (90 sets, daily range): BP systolic 78–191; BP diastolic 48–172
[2022-04-12] MEDS ORDERED: KCL 10MEQ/50ML PREMIX 50 ML IV NR (01:00)
[2022-04-12] MEDS: MORPHINE SULFATE 4 MG/ML CPJ (NOT FOR IM USE) IV PRN ×6 (02:42→23:58)
[2022-04-12] MEDS: CEFAZOLIN 1000MG PREMIX 50 ML IV SCH ×3 (05:13→21:26)
[2022-04-12] MEDS: AMIODARONE HCL 200 MG TABLET PO SCH ×2 (08:18→16:22)
[2022-04-12] MEDS: DEXT 5%/LACTATED RINGERS 1,000 ML IV SCH ×2 (08:18→16:23)
[2022-04-12 10:27] LABS: HEMATOCRIT. 30.3 % (42.0-52.0); HEMOGLOBIN. 10.5 g/dL (14.0-18.0); MEAN CORPUSCULAR HEMOGLOBIN 28.5 pg (28.0-32.0); MEAN CORPUSCULAR VOLUME 82.3 fL (80.0-94.0); MEAN PLATELET VOLUME 8.7 fl (7.4-10.4); PLATELET 192 x1000/uL (130-400); RED BLOOD CELL COUNT 3.68 mill/uL (4.7-6.1); RED CELL DISTRIBUTION WIDTH 18.1 % (11.6-14.6)
[2022-04-12] MEDS: ISOSORBIDE MONONITRATE 30MG TABLET SR 24HR PO SCH (11:00)
[2022-04-12 11:43] LABS: CHLORIDE 108 mEq/L (98-107)
[2022-04-12 14:09] LABS: PLATELET ESTIMATE NORMAL
[2022-04-13] VITALS (40 sets, daily range): BP systolic 106–155; BP diastolic 58–103
[2022-04-13] MEDS: DEXT 5%/LACTATED RINGERS 1,000 ML IV SCH ×2 (00:03→08:38)
[2022-04-13] MEDS: CEFAZOLIN 1000MG PREMIX 50 ML IV SCH (05:24)
[2022-04-13] MEDS: MORPHINE SULFATE 4 MG/ML CPJ (NOT FOR IM USE) IV PRN ×3 (05:54→21:46)
[2022-04-13] MEDS: ISOSORBIDE MONONITRATE 30MG TABLET SR 24HR PO SCH (08:37)
[2022-04-13] MEDS: AMIODARONE HCL 200 MG TABLET PO SCH ×2 (08:37→17:37)
[2022-04-13] MEDS ORDERED: NALOXONE HCL 0.4MG/ML VIAL IV PRN (12:00)
[2022-04-13] MEDS ORDERED: HYDROCODONE/ACETAMINOPHEN 5/325MG TABLET PO PRN (12:00)
[2022-04-13] MEDS: PIPERACILLIN/TAZOBACTAM 3.375 G in DEXTROSE 5% WATER 50 ML IV SCH ×2 (13:26→21:46)
[2022-04-13 18:04] LABS: CLARITY URINE CLEAR (CLEAR); COLOR URINE YELLOW (YELLOW); KETONES URINE NEGATIVE (NEGATIVE); LEUKOCYTE ESTERASE URINE TRACE (NEGATIVE); NITRITE URINE NEGATIVE (NEGATIVE); OCCULT BLOOD URINE 2+ (NEGATIVE); PH URINE 6.5 (4.5-8.0); PROTEIN URINE TRACE (NEGATIVE); SPECIFIC GRAVITY URINE 1.011 (1.005-1.030)
[2022-04-13] MEDS ORDERED: VANCOMYCIN 1,500 MG in DEXT 5% WATER 500 ML IV NR (18:30)
[2022-04-14] VITALS (9 sets, daily range): BP systolic 105–152; BP diastolic 60–119
[2022-04-14] MEDS: PIPERACILLIN/TAZOBACTAM 3.375 G in DEXTROSE 5% WATER 50 ML IV SCH ×3 (06:06→20:38)
[2022-04-14] MEDS: MORPHINE SULFATE 4 MG/ML CPJ (NOT FOR IM USE) IV PRN ×3 (06:28→20:44)
[2022-04-14] MEDS: DOCUSATE SODIUM 250MG CAPSULE PO SCH (08:39)
[2022-04-14] MEDS: AMIODARONE HCL 200 MG TABLET PO SCH ×2 (08:39→17:02)
[2022-04-14] MEDS: VANCOMYCIN 1G PREMIX 200 ML IV SCH ×2 (08:41→20:37)
[2022-04-14] MEDS: ISOSORBIDE MONONITRATE 30MG TABLET SR 24HR PO SCH (08:41)
[2022-04-14 08:48] LABS: HEMATOCRIT. 33.5 % (42.0-52.0); HEMOGLOBIN. 11.1 g/dL (14.0-18.0); MEAN CORPUSCULAR HEMOGLOBIN 27.4 pg (28.0-32.0); MEAN CORPUSCULAR VOLUME 82.8 fL (80.0-94.0); MEAN PLATELET VOLUME 8.3 fl (7.4-10.4); PLATELET 186 x1000/uL (130-400); RED BLOOD CELL COUNT 4.04 mill/uL (4.7-6.1); RED CELL DISTRIBUTION WIDTH 17.1 % (11.6-14.6)
[2022-04-14 08:51] LABS: CHLORIDE 101 mEq/L (98-107)
[2022-04-14] MEDS ORDERED: POTASSIUM CHLORIDE 20MEQ TABLET SR PO NR (11:15)
[2022-04-14] MEDS ORDERED: LACTULOSE 20G/30ML UDC PO SCH (13:30)
[2022-04-14] MEDS ORDERED: LACTULOSE 20G/30ML UDC PO PRN (13:30)
[2022-04-15 04:00] VITALS: BP 127/80
[2022-04-15] MEDS: MORPHINE SULFATE 4 MG/ML CPJ (NOT FOR IM USE) IV PRN ×5 (04:28→18:10)
[2022-04-15] MEDS: PIPERACILLIN/TAZOBACTAM 3.375 G in DEXTROSE 5% WATER 50 ML IV SCH ×3 (05:16→23:58)
[2022-04-15 06:25] LABS: HEMATOCRIT. 33.8 % (42.0-52.0); HEMOGLOBIN. 11.4 g/dL (14.0-18.0); MEAN CORPUSCULAR HEMOGLOBIN 27.8 pg (28.0-32.0); MEAN PLATELET VOLUME 8.4 fl (7.4-10.4); PLATELET 195 x1000/uL (130-400); RED BLOOD CELL COUNT 4.12 mill/uL (4.7-6.1); RED CELL DISTRIBUTION WIDTH 17.1 % (11.6-14.6)
[2022-04-15 06:40] LABS: CHLORIDE 102 mEq/L (98-107)
[2022-04-15 07:50] LABS: PLATELET ESTIMATE NORMAL
[2022-04-15 08:00] VITALS: BP 136/82
[2022-04-15] MEDS: DOCUSATE SODIUM 250MG CAPSULE PO SCH (08:46)
[2022-04-15] MEDS: AMIODARONE HCL 200 MG TABLET PO SCH ×2 (08:47→17:57)
[2022-04-15] MEDS: ISOSORBIDE MONONITRATE 30MG TABLET SR 24HR PO SCH (08:50)
[2022-04-15] MEDS: VANCOMYCIN 1G PREMIX 200 ML IV SCH ×2 (08:51→21:52)
[2022-04-15 11:49] VITALS: BP 138/80
[2022-04-15 13:55] LABS: PLATELET ESTIMATE NORMAL
[2022-04-15 16:00] VITALS: BP 125/69
[2022-04-15 20:00] VITALS: BP 101/63
[2022-04-16 00:02] VITALS: BP 112/67
[2022-04-16] MEDS: MORPHINE SULFATE 4 MG/ML CPJ (NOT FOR IM USE) IV PRN ×3 (00:04→14:11)
[2022-04-16 04:00] VITALS: BP 125/73
[2022-04-16] MEDS: PIPERACILLIN/TAZOBACTAM 3.375 G in DEXTROSE 5% WATER 50 ML IV SCH ×2 (05:30→14:10)
[2022-04-16 08:00] VITALS: BP 132/81
[2022-04-16] MEDS: VANCOMYCIN 1G PREMIX 200 ML IV SCH (09:41)
[2022-04-16] MEDS: AMIODARONE HCL 200 MG TABLET PO SCH ×2 (09:41→18:03)
[2022-04-16] MEDS: ISOSORBIDE MONONITRATE 30MG TABLET SR 24HR PO SCH (09:41)
[2022-04-16] MEDS: DOCUSATE SODIUM 250MG CAPSULE PO SCH (09:42)
[2022-04-16 12:00] VITALS: BP 125/80
[2022-04-16 16:00] VITALS: BP 118/76
[2022-04-16 20:00] VITALS: BP 103/58
== END 2022-04-16 20:30 | DRG 453 ==
LOC: ER 08:55 → SUPCPDRO 13:31 → MICUSO 20:40 → 8WST 04-08 07:09 → MICUNO 04-11 15:15 → 5EST 04-13 10:42 → 7EST 04-15 19:00
PROVIDERS: ADMIT Internal Medicine; ATTEND Internal Medicine
PROC: 0RGA071 Fusion of Thoracolumbar Vertebral Joint with Autologous Tissue Substitute, Posterior Approach, Posterior Column, Open Approach (ICD-10-PCS; 2022-04-11)
PROC: 01N80ZZ Release Thoracic Nerve, Open Approach (ICD-10-PCS; 2022-04-11)
PROC: 01NB0ZZ Release Lumbar Nerve, Open Approach (ICD-10-PCS; 2022-04-11)
PROC: 0RG20K0 Fusion of 2 or more Cervical Vertebral Joints with Nonautologous Tissue Substitute, Anterior Approach, Anterior Column, Open Approach (ICD-10-PCS; principal; 2022-04-15)
PROC: 0RB30ZZ Excision of Cervical Vertebral Disc, Open Approach (ICD-10-PCS; 2022-04-15)
PROC: 00NW0ZZ Release Cervical Spinal Cord, Open Approach (ICD-10-PCS; 2022-04-15)
PROC: 4A11X4G Monitoring of Peripheral Nervous Electrical Activity, Intraoperative, External Approach (ICD-10-PCS; 2022-04-15)
DX: M48.02 Spinal stenosis, cervical region (principal); G82.50 Quadriplegia, unspecified; U07.1 COVID-19; I69.351 Hemiplegia and hemiparesis following cerebral infarction affecting right dominant side; M48.56XA Collapsed vertebra, not elsewhere classified, lumbar region, initial encounter for fracture; M50.00 Cervical disc disorder with myelopathy, unspecified cervical region; M48.061 Spinal stenosis, lumbar region without neurogenic claudication; D64.9 Anemia, unspecified; E87.6 Hypokalemia; I10 Essential (primary) hypertension; J45.909 Unspecified asthma, uncomplicated; R32 Unspecified urinary incontinence; I25.10 Atherosclerotic heart disease of native coronary artery without angina pectoris; G40.909 Epilepsy, unspecified, not intractable, without status epilepticus; R74.01 Elevation of levels of liver transaminase levels; M50.10 Cervical disc disorder with radiculopathy, unspecified cervical region; Z91.010 Allergy to peanuts; Z91.09 Other allergy status, other than to drugs and biological substances
CPT/HCPCS: 36415; 36600; 71045; 72100; 72148; 76000; 80048; 80053; 80202; 81003; 82375; 82550; 82553; 82805; 84484; 85025; 86850; 86900; 87426; 93005; 95829; 95925; 95926; 95928; 95929; 97162; 97530; 99285; C1713; J0690; J1265; J1580; J2270; J2543; J3370; J3480; J3490; J7050; J7060; J7121; P9047; A5200; C1762

== ENCOUNTER 2022-05-10 16:32 | Emergency (ER) | payer MEDICARE, MEDICAID ==
[~2022-05-10] VITALS: Ht 170.2 cm; Wt 87.0 kg
[~2022-05-10 16:32] MED LIST changes: +CEPH500C2 MT; +OXYC-100 MT; +TRAM50TA3 MT
[2022-05-10 17:14] LABS: BASOPHILS % 0.5 % (0.0-2.0); EOSINOPHILS % 2.7 % (0.0-5.0); HEMATOCRIT. 36.6 % (42.0-52.0); HEMOGLOBIN. 11.9 g/dL (14.0-18.0); LYMPHOCYTES % 25.6 % (20.0-50.0); MEAN CORPUSCULAR VOLUME 82.9 fL (80.0-94.0); MEAN PLATELET VOLUME 7.5 fl (7.4-10.4); MONOCYTES % 9.3 % (2.0-8.0); NEUTROPHILS % 61.9 % (40.0-76.0); PLATELET 284 x1000/uL (130-400); RED BLOOD CELL COUNT 4.41 mill/uL (4.7-6.1); RED CELL DISTRIBUTION WIDTH 17.2 % (11.6-14.6)
[2022-05-10] MEDS ORDERED: MORPHINE SULFATE 4 MG/ML CPJ (NOT FOR IM USE) IV ONE (17:15)
[2022-05-10 17:23] LABS: CHLORIDE 109 mEq/L (98-107)
[2022-05-10 17:59] LABS: CLARITY URINE TURBID (CLEAR); COLOR URINE RED (YELLOW); KETONES URINE NEGATIVE (NEGATIVE); LEUKOCYTE ESTERASE URINE 3+ (NEGATIVE); NITRITE URINE POSITIVE (NEGATIVE); OCCULT BLOOD URINE 2+ (NEGATIVE); PROTEIN URINE 2+ (NEGATIVE); SPECIFIC GRAVITY URINE 1.016 (1.005-1.030); UROBILINOGEN URINE 0.2 E.U./dL (0.2-1.0)
[2022-05-10] MEDS ORDERED: CIPR500T5 MT (20:30)
[2022-05-11 00:19] VITALS: BP 143/84
== END 2022-05-11 00:21 | disposition home or self-care (01) ==
LOC: ER 16:50
DX: N30.90 Cystitis, unspecified without hematuria (principal); I10 Essential (primary) hypertension; J45.909 Unspecified asthma, uncomplicated; J44.1 Chronic obstructive pulmonary disease with (acute) exacerbation; Z91.010 Allergy to peanuts; Z79.899 Other long term (current) drug therapy; Z86.73 Personal history of transient ischemic attack (TIA), and cerebral infarction without residual deficits
CPT/HCPCS: 36415; 76857; 80053; 81003; 85025; 87086; 93005; 96374; 99284; J2270; 99283

== ENCOUNTER 2022-05-18 22:41 | Emergency (ER) | payer MEDICARE, MEDICAID ==
[~2022-05-18] VITALS: Ht 170.2 cm; Wt 100.0 kg
[~2022-05-18 22:41] MED LIST changes: +CIPR500T5 MT
[2022-05-19 03:35] LABS: BASOPHILS % 0.4 % (0.0-2.0); EOSINOPHILS % 2.4 % (0.0-5.0); HEMATOCRIT. 33.8 % (42.0-52.0); HEMOGLOBIN. 11.2 g/dL (14.0-18.0); LYMPHOCYTES % 32.6 % (20.0-50.0); MEAN CORPUSCULAR HEMOGLOBIN 27.3 pg (28.0-32.0); MEAN CORPUSCULAR VOLUME 82.3 fL (80.0-94.0); MEAN PLATELET VOLUME 8.2 fl (7.4-10.4); MONOCYTES % 11.5 % (2.0-8.0); NEUTROPHILS % 53.1 % (40.0-76.0); PLATELET 228 x1000/uL (130-400); RED BLOOD CELL COUNT 4.11 mill/uL (4.7-6.1); RED CELL DISTRIBUTION WIDTH 17.2 % (11.6-14.6)
[2022-05-19 03:56] LABS: INR 1.1; PARTIAL THROMBOPLASTIN TIME 27.5 sec (23.4-31.0); PROTHROMBIN TIME 11.9 sec (9.6-11.0)
[2022-05-19 03:57] LABS: CHLORIDE 108 mEq/L (98-107)
[2022-05-19 06:00] VITALS: BP 164/95
[2022-05-19] MEDS ORDERED: KETOROLAC 15MG/ML VIAL IV ONE (06:15)
== END 2022-05-19 09:42 | disposition home or self-care (01) ==
LOC: ER 22:41
DX: R07.2 Precordial pain (principal); R94.31 Abnormal electrocardiogram [ECG] [EKG]; I10 Essential (primary) hypertension
CPT/HCPCS: 36415; 71045; 80053; 83880; 84484; 85025; 85610; 85730; 93005; 96374; 99284; J1885